=== PATIENT | female | born 1950 | race Hispanic/Latino ===

== ENCOUNTER → 2024-09-23 | Outpatient (CLI) | payer OTHER ==
--- NOTE | 2024-09-23 11:54 | HMCIMG ---
MR SPINAL CANAL, LUMBAR WO CON HISTORY: Pain COMPARISON: None TECHNIQUE: MRI of the lumbar spine was performed utilizing multiple pulse sequences in axial , coronal and sagittal plane. Patient was not given contrast through intravenous route. FINDINGS: Endplate degenerative changes are seen with disc space narrowing, involving the L2-3 and L5-S1 levels. No abnormal signal intensity is seen of the visualized bony structure. No loss of vertebral height is seen. There is straightening of normal lumbar curvature which may be related to muscle spasm or positioning. Degenerative disc signals are present at all lumbar spine levels. Visualized distal conus is unremarkable. Grade 1 anterolisthesis is seen at the L4-5 level. At the L1-L2 level, there is spondylotic disc with bilateral ligamentum flavum hypertrophy causing anterior thecal sac compression with bilateral lateral recess stenosis and minimal bilateral neural foraminal stenosis. The thecal sac measures approximately 6.83 mm in its anterior posterior dimension. At the L2-L3 level, there is spondylotic disc with annular disc bulge and bilateral ligamentum flavum hypertrophy causing anterior thecal sac compression with bilateral lateral recess stenosis and bilateral neural foraminal stenosis. The thecal sac measures approximately 8.5 mm in its anterior posterior dimension. At the L3-L4 level, there is spondylotic disc with annular disc bulge and bilateral ligamentum flavum hypertrophy causing anterior thecal sac compression with bilateral lateral recess stenosis and bilateral neural foraminal stenosis. The thecal sac measures approximately 4.9 mm in its anterior posterior dimension. At the L4-L5 level, there is spondylotic disc with annular disc bulge and bilateral ligamentum flavum hypertrophy causing anterior thecal sac compression with bilateral lateral recess stenosis and bilateral neural foraminal stenosis. The thecal sac measures approximately 2.3 mm in its anterior posterior dimension. At the L5-S1 level, there is spondylotic disc with left lateral disc herniation/extrusion and bilateral ligamentum flavum hypertrophy causing anterior thecal sac compression with bilateral lateral recess stenosis and bilateral neural foraminal stenosis. The thecal sac measures approximately 5.9 mm in its anterior posterior dimension. IMPRESSION: 1. DJD with lumbar spine spondylosis as described above.
== END | disposition home or self-care (01) ==
LOC: RAH 09-21 14:40
PROVIDERS: ATTEND Physician Assistant Medical
DX: M47.817 Spondylosis without myelopathy or radiculopathy, lumbosacral region (principal); M51.369 Other intervertebral disc degeneration, lumbar region without mention of lumbar back pain or lower extremity pain; M48.07 Spinal stenosis, lumbosacral region; M43.16 Spondylolisthesis, lumbar region
CPT/HCPCS: 72148